=== PATIENT | female | born 1960 | race Caucasian/White ===

== ENCOUNTER 2017-01-07 21:31 | Emergency (ER) | payer BC ==
--- NOTE | 2017-01-09 01:26 | ER ---
ADMIT: 01/07/2017 RM/LOC: ER [facility] MR#: [id number] [address] [id number] [place] [address] [facility] [address] Emergency Room Report SEX: F AGE: 56 : 1960 DATE: 01/07/2017 HISTORY OF PRESENT ILLNESS: The patient is a 56-year-old female with abdominal pain for 1 hour. She says she had some hamburger meat at 1700 hours and the pain was excruciatingly bad after that. She has a history of twisted intestine, had surgery then. She points to the mid abdomen. MEDICATIONS: She takes no medication on regular basis. SOCIAL HISTORY: She does drink alcohol rarely and has been on a diet of high- protein. PHYSICAL EXAMINATION: VITAL SIGNS: Her blood pressure is 142/93, heart rate 72, respirations 16, temp is 96.3. GENERAL: She is moderately anxious, looks pretty pale. ABDOMEN: Tender right upper quadrant radiating to the back. No fever though. LABORATORY DATA: CBC within normal limits with 11.0 WBCs, calcium 8.4, glucose 123, potassium 2.9. Urine is contaminated. She has leukocytes 3+, ketones 2+, rbc's 2, and wbc's 9. Her ultrasound shows sludge and stones. There is wall thickened in the upper limits of normal, possible cholecystitis, at least it does not exclude it. CT scan shows cholelithiasis, slightly distended gallbladder. CLINICAL IMPRESSION: 1. Moderate hypokalemia. 2. Cholelithiasis. 3. Right upper quadrant abdominal pain. 4. Suspected cholecystitis as well. DISPOSITION: Given [place], potassium chloride supplementation, metronidazole to take with her on her trip in case she develops fever, diarrhea, and her symptoms worsen. Follow up with Dr. Stafford as soon as she can, most likely next week. Continue taking potassium chloride supplementation for the next 10 days. Her EKG, by the way, does look normal to patient. Discharged home. UZIEL Serrano / Adrien Eldridge MD / missy JOB #: [id number] CC: Adrien Eldridge MD, Attending Physician Cecy Pickett APRN, Family Physician
== END 2017-01-08 00:50 | disposition home or self-care (01) ==
LOC: ER 21:31
DX: K80.70 Calculus of gallbladder and bile duct without cholecystitis without obstruction (principal); E87.6 Hypokalemia; R10.11 Right upper quadrant pain; I10 Essential (primary) hypertension; Z90.49 Acquired absence of other specified parts of digestive tract